=== PATIENT | female | born 1960 | race Caucasian/White ===

== ENCOUNTER 2019-08-21 14:51 | Emergency (ER) | payer OTHER ==
[~2019-08-21] VITALS: Ht 154.9 cm; Wt 83.0 kg
[~2019-08-21 14:51] MED LIST: VICODIN 500 MG-1 TAB PO
[2019-08-21] MEDS ORDERED: NORCO 5-325 TA1 EACH PO (16:40)
== END 2019-08-21 16:48 | disposition home or self-care (01) ==
LOC: ED 14:51
DX: S42.302A Unspecified fracture of shaft of humerus, left arm, initial encounter for closed fracture (principal); Z88.8 Allergy status to other drugs, medicaments and biological substances; W19.XXXA Unspecified fall, initial encounter; Y93.89 Activity, other specified; Y92.89 Other specified places as the place of occurrence of the external cause; Y99.8 Other external cause status

== ENCOUNTER → 2020-07-18 | Outpatient (CLI) | payer OTHER ==
[~2020-07-18] MED LIST changes: +NORCO 5-325 TA1 EACH PO
== END | disposition home or self-care (01) ==
LOC: COVID19 10:58
PROVIDERS: ATTEND Student in an Organized Health Care Education/Training Program
DX: U07.1 COVID-19 (principal)

== ENCOUNTER 2020-09-06 13:17 | Emergency (ER) | payer OTHER ==
[~2020-09-06] VITALS: Ht 154.9 cm; Wt 82.6 kg
[2020-09-06] MEDS ORDERED: IBUPROFEN600 MG PO (13:49)
[2020-09-06] MEDS ORDERED: AUGMENTIN 875875 MG PO (13:49)
[2020-09-06] MEDS ORDERED: AMOXICILLIN500 M2 PO (13:49)
== END 2020-09-06 14:25 | disposition home or self-care (01) ==
LOC: ED 13:17
DX: K08.89 Other specified disorders of teeth and supporting structures (principal); K21.9 Gastro-esophageal reflux disease without esophagitis; Z88.8 Allergy status to other drugs, medicaments and biological substances; Z90.711 Acquired absence of uterus with remaining cervical stump; Z98.890 Other specified postprocedural states

== ENCOUNTER → 2022-10-13 | Outpatient (CLI) | payer SELFPAY ==
[~2022-10-13] MED LIST changes: +AMOXICILLIN500 M2 PO; +AUGMENTIN 875875 MG PO; +IBUPROFEN600 MG PO
[2022-10-13 13:41] LABS: BASO # 0.1 10*3/uL (0.0-0.1); BASO % 1.2 % (0.0-1.0); EOS # 0.1 10*3/uL (0.0-0.4); EOS % 1.4 % (1.0-4.0); HEMATOCRIT 37.2 % (37.0-47.0); LYMPH # 2.4 10*3/uL (1.3-4.4); MEAN CELL VOLUME 89.4 fl (81.0-99.0); MEAN CORPUSCULAR HGB 30.5 pg (27.0-31.0); MEAN CORPUSCULAR HGB CONC 34.1 g/dl (33.0-37.0); MEAN PLATELET VOLUME 11.4 fl (9.6-12.3); MONO # 0.5 10*3/uL (0.1-1.0); MONO % 8.9 % (3.0-9.0); NEUT # 2.5 10*3/uL (2.3-7.9); NEUT % 45.1 % (47.0-73.0); PLATELET COUNT AUTOMATED 194 10*3/uL (130-400); RED BLOOD COUNT 4.16 10*6/uL (4.10-5.10); RED CELL DISTRI WIDTH 14.1 % (0-14.5); WHITE BLOOD COUNT 5.6 10*3/uL (4.8-10.8)
[2022-10-13 14:29] LABS: ALKALINE PHOSPHATASE 67 U/L (46-116); BUN 10 mg/dl (9-23); CHLORIDE 96 mmol/L (98-107); CHOLESTEROL 215 mg/dL (<200); LDL CHOLESTEROL 101 mg/dL (9-159); POTASSIUM 3.5 mmol/L (3.4-5.1); SGPT/ALT 15 U/L (10-49); THYROID STIM HORMONE (HS) 3.016 uIU/ml (0.550-4.780); TOTAL PROTEIN 7.3 gm/dL (6.0-8.0); TRIGLYCERIDES 87 mg/dl (<150)
== END | disposition home or self-care (01) ==
LOC: LAB 13:07
PROVIDERS: ATTEND Family Medicine
DX: Z00.01 Encounter for general adult medical examination with abnormal findings (principal); I10 Essential (primary) hypertension; E78.49 Other hyperlipidemia

== ENCOUNTER 2023-02-13 18:50 | Emergency (ER) | payer SELFPAY ==
[~2023-02-13] VITALS: Ht 154.9 cm; Wt 94.8 kg
[2023-02-13] MEDS ORDERED: XANAX0.5 MG PO (19:03)
[2023-02-13] MEDS ORDERED: HYZAAR 100-12.1 EACH PO (19:03)
[2023-02-13] MEDS ORDERED: PREVACID30 M2 PO (19:03)
[2023-02-13 19:09] LABS: BASO # 0.1 10*3/uL (0.0-0.1); EOS # 0.1 10*3/uL (0.0-0.4); EOS % 1.5 % (1.0-4.0); HEMATOCRIT 35.9 % (37.0-47.0); LYMPH # 2.4 10*3/uL (1.3-4.4); LYMPH % 39.1 % (27.0-41.0); MEAN CELL VOLUME 84.7 fl (81.0-99.0); MEAN CORPUSCULAR HGB CONC 35.4 g/dl (33.0-37.0); MEAN PLATELET VOLUME 10.6 fl (9.6-12.3); MONO # 0.6 10*3/uL (0.1-1.0); MONO % 9.6 % (3.0-9.0); NEUT % 48.6 % (47.0-73.0); PLATELET COUNT AUTOMATED 210 10*3/uL (130-400); RED BLOOD COUNT 4.24 10*6/uL (4.10-5.10); RED CELL DISTRI WIDTH 13.7 % (0-14.5); WHITE BLOOD COUNT 6.1 10*3/uL (4.8-10.8)
[2023-02-13 19:35] LABS: ALKALINE PHOSPHATASE 83 U/L (46-116); BUN 7 mg/dl (9-23); CHLORIDE 85 mmol/L (98-107); POTASSIUM 2.7 mmol/L (3.4-5.1); SGPT/ALT 47 U/L (10-49)
== END 2023-02-13 22:51 | disposition home or self-care (01) ==
LOC: ED 18:50
PROVIDERS: Internal Medicine
DX: K21.9 Gastro-esophageal reflux disease without esophagitis (principal); R07.89 Other chest pain; E87.8 Other disorders of electrolyte and fluid balance, not elsewhere classified; I10 Essential (primary) hypertension; Z88.8 Allergy status to other drugs, medicaments and biological substances; Z90.710 Acquired absence of both cervix and uterus; Z90.49 Acquired absence of other specified parts of digestive tract; Z98.890 Other specified postprocedural states

== ENCOUNTER 2023-06-23 14:10 | Emergency (ER) | payer OTHER ==
[~2023-06-23] VITALS: Ht 154.9 cm; Wt 90.7 kg
[~2023-06-23 14:10] MED LIST changes: +HYZAAR 100-12.1 EACH PO; +PREVACID30 M2 PO; +XANAX0.5 MG PO
[2023-06-23] MEDS ORDERED: CYCLOBENZAPRINE10 MG PO (20:22)
[2023-06-23] MEDS ORDERED: PREDNISONE10 M1 PO (20:22)
== END 2023-06-23 20:37 | disposition home or self-care (01) ==
LOC: ED 14:10
DX: M54.50 Low back pain, unspecified (principal); M79.652 Pain in left thigh; K21.9 Gastro-esophageal reflux disease without esophagitis; I10 Essential (primary) hypertension; Z88.8 Allergy status to other drugs, medicaments and biological substances; Z90.710 Acquired absence of both cervix and uterus; Z90.49 Acquired absence of other specified parts of digestive tract; Z98.890 Other specified postprocedural states